=== PATIENT | female | born 1950 | race Caucasian/White ===

== ENCOUNTER → 2017-02-17 | Outpatient (CLI) | payer OTHER ==
[~2017-02-17] MED LIST: ALBUTEROL17 GM INH; ASPIRIN81 M1 PO; AUGMENTIN875 M1 PO; BAYER CHEWABLE81 MG PO; BENAZEPRIL PO; HYDROCHLOROTHIA25 MG PO; LIPITOR PO; LISINOPRIL PO; LOPRESSOR PO; PERCOCET 5-3251 TAB PO; PRAVACHOL20 MG PO; PREDNISONE PO; PROZAC PO; SYNTHROID PO; ZITHROMAX PO
--- NOTE | ~2017-02-17 | CR181 ---
[facility] A Service of [facility] & [facility] RADIOLOGY TEXT RESULTS PATIENT: SITA VIVAS LOCATION: [facility] : 50 UNIT #: [id number] AGE: [address]: Toro Worthington MD SEX: F ORDER DR: [id number] [place] [id number] O MR#: [id number] Acc #: [id number] NAME: SITA VIVAS. : 1950 SEX: F STUDY DATE/TIME: 02/17/2017 13:54 UNIT: [facility] ROOM: STUDY DESCRIPTION: CR Lumbar Spine 2 or 3 Views Attending Physician: Toro Worthington M.D. Referring Physician: Toro Worthington M.D. Ordering Physician: Toro Worthington M.D. Primary Care Physician: Toro Worthington M.D. MEDICAL IMAGING REPORT This report is preliminary unless electronic signature is present. EXAM Lumbar spine series, 3 views, 02/17/2017 HISTORY Low back pain. FINDINGS There is osteopenia. There is a very slight L5-S1 grade 1 anterolisthesis but alignment is otherwise normal. 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 Dictated by... Jerome De Dios M.D. THIS IS AN ELECTRONICALLY VERIFIED REPORT Jerome De Dios M.D. at 02/21/2017 12:15 PM TEV/pcl TD: 02/17/2017 18:28 JOB #: [id number] MEDICAL IMAGING REPORT Page 1 of 1
== END | disposition home or self-care (01) ==
LOC: SRAD 13:40
DX: M54.5 Low back pain (principal); C51.9 Malignant neoplasm of vulva, unspecified
CPT/HCPCS: 72100